=== PATIENT | male | born 1995 | race Two or more races ===

== ENCOUNTER 2022-03-09 00:06 | Emergency (ER) | payer MEDICAID, OTHER ==
[~2022-03-09] VITALS: Ht 167.6 cm; Wt 54.4 kg
[2022-03-09 02:50] VITALS: BP 143/81
== END 2022-03-09 01:20 | disposition left against medical advice (07) ==
LOC: ER 00:06
DX: F11.10 Opioid abuse, uncomplicated (principal); Z53.21 Procedure and treatment not carried out due to patient leaving prior to being seen by health care provider